=== PATIENT | female | born 1985 | race Caucasian/White ===

== ENCOUNTER 2018-04-18 03:21 | Emergency (ER) | payer BC ==
[2018-04-18] MEDS ORDERED: NA CHLORIDE 0.9% 2,000 ML ONE (03:57)
[2018-04-18 04:21] LABS: Absolute Lymphocytes (CBC) 1.2 K/uL (0.7-4.9); Absolute Monocytes 0.7 K/uL (0.1-1.3); Absolute Neutrophil 6.5 K/uL (1.8-8.0); Basophils % 0.6 % (0-1.3); Eosinophils % 2.6 % (0-4.4); Hematocrit 36.5 % (36.0-45.0); Lymphocytes % 13.6 % (15.3-44.8); MCH 31.2 pg (27.0-35.0); MCV 92.5 fL (80-100); MPV 9.7 fL (7.6-11.3); Monocytes % 8.3 % (3.3-12.3); RBC Red Blood Cell Count 3.95 M/uL (3.86-4.86)
[2018-04-18 04:32] LABS: Bicarbonate 27 mEq/L (21-31); Glucose Level 92 mg/dL (65-120); Potassium 3.5 mEq/L (3.6-5.0); Sodium Level 138 mEq/L (135-145)
[2018-04-18 04:38] LABS: ALT/SGPT 12 IU/L (10-60); AST/SGOT 18 IU/L (10-42); Alkaline Phosphatase 39 IU/L (42-121); BUN Blood Urea Nitrogen 11 mg/dL (6-20); Bilirubin Direct 0.1 mg/dL (0-0.2); Bilirubin Total 0.5 mg/dL (0.3-1.2); Protein, Total 6.9 g/dL (6.0-8.3)
--- NOTE | 2018-04-18 05:26 | EDPHYS ---
Physician Documentation [facility] Name: Keyana Romero Age: 32 yrs Sex: Female : 1985 Arrival Date: 04/18/2018 Time: 03:24 Bed 7 Private MD: ED Physician Shorty Morrison HPI: 04/18 05:17 This 32 yrs old Female presents to ER via Ambulatory with complaints of pkl dehydration, shaking, dont feel good trip to [place]. 05:17 Patient said she is feeling weak and light headed. Just returned from [facility] after pkl spending a few days there. Think she may be dehydrated.. 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 - Social history:: Smoking status: Patient uses tobacco products, denies chronic smoking, but will smoke occasionally, Patient uses alcohol, only on a social basis. Patient/guardian denies using street drugs. ROS: 05:17 Eyes: Negative for injury, pain, redness, and discharge, ENT: Negative for injury, pkl pain, and discharge, Neck: Negative for injury, pain, and swelling, Cardiovascular: Negative for chest pain, palpitations, and edema, Respiratory: Negative for shortness of breath, cough, wheezing, and pleuritic chest pain, Abdomen/GI: Negative for abdominal pain, nausea, vomiting, diarrhea, and constipation, Back: Negative for injury and pain, : Negative for injury, bleeding, discharge, and swelling, MS/Extremity: Negative for injury and deformity, Skin: Negative for injury, rash, and discoloration, Neuro: Negative for headache, weakness, numbness, tingling, and seizure. Exam: 05:17 Head/Face: Normocephalic, atraumatic. Eyes: Pupils equal round and reactive to light, pkl extra-ocular motions intact. Lids and lashes normal. Conjunctiva and sclera are non-icteric and not injected. Cornea within normal limits. Periorbital areas with no swelling, redness, or edema. ENT: Nares patent. No nasal discharge, no septal abnormalities noted. Tympanic membranes are normal and external auditory canals are clear. Oropharynx with no redness, swelling, or masses, exudates, or evidence of obstruction, uvula midline. Mucous membranes moist. Neck: Trachea midline, no thyromegaly or masses palpated, and no cervical lymphadenopathy. Supple, full range of motion without nuchal rigidity, or vertebral point tenderness. No Meningismus. Chest/axilla: Normal chest wall appearance and motion. Nontender with no deformity. No lesions are appreciated. Cardiovascular: Regular rate and rhythm with a normal S1 and S2. No gallops, murmurs, or rubs. Normal PMI, no JVD. No pulse deficits. Respiratory: Lungs have equal breath sounds bilaterally, clear to auscultation and percussion. No rales, rhonchi or wheezes noted. No increased work of breathing, no retractions or nasal flaring. Abdomen/GI: Soft, non-tender, with normal bowel sounds. No distension or tympany. No guarding or rebound. No evidence of tenderness throughout. Back: No spinal tenderness. No costovertebral tenderness. Full range of motion. Skin: Warm, dry with normal turgor. Normal color with no rashes, no lesions, and no evidence of cellulitis. MS/ Extremity: Pulses equal, no cyanosis. Neurovascular intact. Full, normal range of motion. Neuro: Awake and alert, GCS 15, oriented to person, place, time, and situation. Cranial nerves II-XII grossly intact. Motor strength 5/5 in all extremities. Sensory grossly intact. Cerebellar exam normal. Normal gait. Vital Signs: 03:30 BP 104 / 71; Pulse 71; Resp 18; Temp 98.4(TE); Pulse Ox 100% on R/A; Weight 47.63 kg fc (R); Height 5 ft. 1 in. (154.94 cm) (R); Pain 4/10; 04:30 BP 103 / 57 LA Supine (auto/reg); Pulse 76 RA; Resp 16 S; Pulse Ox 96% on R/A; bs1 05:30 BP 102 / 50 LA Sitting (auto/reg); Pulse 68 LA; Resp 16 S; Temp 98(O); Pulse Ox 100% on bs1 R/A; 03:30 Body Mass Index 19.84 (47.63 kg, 154.94 cm) MDM: 03:44 Patient medically screened. pkl 05:22 Data reviewed: vital signs, nurses notes, lab test result(s). pkl 04/18 03:50 Order name: CBC with Diff; Complete Time: 05:13 pkl 04/18 03:50 Order name: Chem 7; Complete Time: 05:13 pkl 04/18 03:50 Order name: LFT's; Complete Time: 05:13 pkl Administered Medications: 04:01 Drug: NS 0.9% 1000 ml Route: IV; Rate: 1000 ml; Site: right antecubital; bs1 05:54 Follow up: IV Status: Completed infusion bs1 04:43 Drug: NS 0.9% 1000 ml Route: IV; Rate: 125 ml/hr; Site: right antecubital; bs1 05:52 Follow up: IV Intake: 500ml bs1 05:41 Drug: K-Dur 20 mEq Route: PO; bs1 05:52 Follow up: Response: No adverse reaction bs1 Disposition: 04/18/18 05:25 Discharged to Home. Impression: Dehydration. - Condition is Stable. - Work release form, Medication Reconciliation Form, Thank You Letter, Antibiotic Education, Prescription Opioid Use form. - Follow up: Private Physician; When: 1 - 2 days; Reason: Re-evaluation by your physician. Signatures: Dispatcher [employer] Shorty Callaway MD MD pkl Chretien, Felicia, RN RN Jennifer Ruiz RN RN bs1 Corrections: (The following items were deleted from the chart) 05:54 05:25 04/18/2018 05:25 Discharged to Home. Impression: Dehydration. Condition is bs1 Stable. Forms are Medication Reconciliation Form, Thank You Letter, Antibiotic Education, Prescription Opioid Use. Follow up: Private Physician; When: 1 - 2 days; Reason: Re-evaluation by your physician. pkl
--- NOTE | 2018-04-18 05:26 | ER ---
Nurse's Notes [facility] Name: Keyana Romero Age: 32 yrs Sex: Female : 1985 Arrival Date: 04/18/2018 Time: 03:24 Bed 7 Private MD: Diagnosis: Dehydration Presentation: 04/18 03:30 Presenting complaint: Patient states: that she has been in [place] for the past few fc days. Prior to leaving yesterday she had a lot of ETOH. Then just a few hrs ago started to shake and thinks she is dehydrated. Also has a bad sunburn that is causing her to swell. Transition of care: patient was not received from another setting of care. Onset of symptoms was April 18, 2018. Initial Sepsis Screen: Does the patient meet any 2 criteria? No. Patient's initial sepsis screen is negative. Does the patient have a suspected source of infection? No. Patient's initial sepsis screen is negative. Care prior to arrival: None. 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 - Social history:: Smoking status: Patient uses tobacco products, denies chronic smoking, but will smoke occasionally, Patient uses alcohol, only on a social basis. Patient/guardian denies using street drugs. Screenin:30 Abuse screen: Denies threats or abuse. Nutritional screening: No deficits noted. Tuberculosis screening: No symptoms or risk factors identified. Fall Risk None identified. Assessment: 03:47 General: Appears in no apparent distress. uncomfortable, Behavior is calm, cooperative, bs1 appropriate for age. Pain: Denies pain. Neuro: Level of Consciousness is awake, alert, obeys commands, Oriented to person, place, time, situation, Appropriate for age Reports dizziness. Cardiovascular: Reports fatigue, Denies chest pain, shortness of breath, Heart tones S1 S2 present Capillary refill < 3 seconds Patient's skin is warm and dry. Respiratory: Airway is patent Trachea midline Respiratory effort is even, unlabored, Respiratory pattern is regular, symmetrical, Breath sounds are clear bilaterally. GI: No deficits noted. No signs and/or symptoms were reported involving the gastrointestinal system. : No deficits noted. No signs and/or symptoms were reported regarding the genitourinary system. EENT: No deficits noted. No signs and/or symptoms were reported regarding the EENT system. Derm: Skin is intact, Skin is pink, warm \T\ dry. whelp noted to right buttock/thigh area. Patient sunburnt. Musculoskeletal: Circulation, motion, and sensation intact. Capillary refill < 3 seconds, Range of motion: intact in all extremities. 04:45 Reassessment: Patient appears in no apparent distress at this time. Patient and/or bs1 family updated on plan of care and expected duration. Pain level reassessed. Patient is alert, oriented x 3, equal unlabored respirations, skin warm/dry/pink. 05:25 Reassessment: Dr Morrison gave verbal order for 500cl bolus then patient may be discharged. bs1 05:50 Reassessment: Patient appears in no apparent distress at this time. Patient and/or bs1 family updated on plan of care and expected duration. Pain level reassessed. Patient is alert, oriented x 3, equal unlabored respirations, skin warm/dry/pink. Patient states feeling better. Patient states symptoms have improved. Vital Signs: 03:30 BP 104 / 71; Pulse 71; Resp 18; Temp 98.4(TE); Pulse Ox 100% on R/A; Weight 47.63 kg fc (R); Height 5 ft. 1 in. (154.94 cm) (R); Pain 4/10; 04:30 BP 103 / 57 LA Supine (auto/reg); Pulse 76 RA; Resp 16 S; Pulse Ox 96% on R/A; bs1 05:30 BP 102 / 50 LA Sitting (auto/reg); Pulse 68 LA; Resp 16 S; Temp 98(O); Pulse Ox 100% on bs1 R/A; 03:30 Body Mass Index 19.84 (47.63 kg, 154.94 cm) ED Course: 03:24 Patient arrived in ED. es 03:30 Arm band placed on Patient placed in an exam room, on a stretcher. fc 03:30 Patient has correct armband on for positive identification. Placed in gown. Bed in low fc position. Call light in reach. Pulse ox on. NIBP on. 03:37 Jennifer Ruiz, RN is Primary Nurse. bs1 03:41 Triage completed. fc 03:42 No provider procedures requiring assistance completed. fc 03:44 Shorty Morrison MD is Attending Physician. pkl 04:00 Inserted saline lock: 20 gauge in right antecubital area, using aseptic technique. bs1 Blood collected. 05:53 IV discontinued, bleeding controlled, No redness/swelling at site. Pressure dressing bs1 applied. Administered Medications: 04:01 Drug: NS 0.9% 1000 ml Route: IV; Rate: 1000 ml; Site: right antecubital; bs1 05:54 Follow up: IV Status: Completed infusion bs1 04:43 Drug: NS 0.9% 1000 ml Route: IV; Rate: 125 ml/hr; Site: right antecubital; bs1 05:52 Follow up: IV Intake: 500ml bs1 05:41 Drug: K-Dur 20 mEq Route: PO; bs1 05:52 Follow up: Response: No adverse reaction bs1 Intake: 05:52 IV: 500ml; Total: 500ml. bs1 Outcome: 05:25 Discharge ordered by . pkl 05:53 Discharged to home ambulatory. bs1 05:53 Condition: stable 05:53 Discharge instructions given to patient, Instructed on discharge instructions, follow up and referral plans. Demonstrated understanding of instructions, follow-up care. 05:54 Patient left the ED. bs1 Signatures: Shorty Morrison MD MD pkEmily Ogden Felicia RN RN Jennifer Ruiz, RN RN bs1 Corrections: (The following items were deleted from the chart) 04:13 04:00 Inserted saline lock: 20 gauge in right antecubital area, using aseptic bs1 technique. bs1
[2018-04-18] MEDS ORDERED: POTASSIUM CL SA 10 MEQ TAB PO ONE (05:39)
== END 2018-04-18 05:54 | disposition home or self-care (01) ==
LOC: ER 03:21
DX: E86.0 Dehydration (principal); Z72.0 Tobacco use
CPT/HCPCS: 36415; 80048; 80076; 85025; 96360; 96361; 99284; J7030

== ENCOUNTER 2019-12-03 17:57 | Emergency (ER) | payer OTHER ==
[2019-12-03] MEDS ORDERED: NA CHLORIDE 0.9% 1,000 ML ONE (19:07)
[2019-12-03] MEDS ORDERED: FAMOTIDINE 20 MG/2 ML VIAL IV ONE (19:07)
[2019-12-03] MEDS ORDERED: ONDANSETRON 4 MG/2 ML VIAL ONE (19:07)
[2019-12-03 19:14] LABS: Absolute Lymphocytes (CBC) 0.8 K/uL (0.7-4.9); Basophils % 0.4 % (0-1.3); Hematocrit 37.5 % (36.0-45.0); Lymphocytes % 12.6 % (15.3-44.8); MPV 9.5 fL (7.6-11.3); RBC Red Blood Cell Count 4.19 M/uL (3.86-4.86)
[2019-12-03 19:15] LABS: Protime INR 0.98
[2019-12-03 19:29] LABS: Urine Blood NEGATIVE (NEG); Urine Glucose NEGATIVE (NEG); Urine Protein NEGATIVE (NEG)
[2019-12-03 19:34] LABS: ALT/SGPT 32 U/L (12-78); AST/SGOT 19 U/L (15-37); Albumin 4.1 g/dL (3.4-5.0); Alkaline Phosphatase 45 U/L (45-117); BUN Blood Urea Nitrogen 9 mg/dL (7-18); Bicarbonate 27 mmol/L (21-32); Bilirubin Direct 0.2 mg/dL (0-0.2); Bilirubin Total 0.6 mg/dL (0.2-1.0); Glucose Level 96 mg/dL (74-106); Magnesium 2.1 mg/dL (1.8-2.4); NT PRO-BNP 73 pg/mL (<125); Potassium 3.7 mmol/L (3.5-5.1); Protein, Total 7.2 g/dL (6.4-8.2); Sodium Level 140 mmol/L (136-145); Troponin (Emerg Dept Use Only) < 0.02 ng/mL (0.0-0.045)
--- NOTE | 2019-12-03 19:47 | RAD REPORT ---
EXAM DESCRIPTION: RAD - Chest Single View - 12/03/2019 7:27 pm CLINICAL HISTORY: SOB Chest pain. COMPARISON: No comparisons FINDINGS: Portable technique limits examination quality. The lungs are grossly clear. The heart is normal in size. No displaced fractures.Mild dextroscoliosis of the upper thoracic spine. IMPRESSION: No acute intrathoracic process suspected.
--- NOTE | 2019-12-03 20:44 | ER ---
Nurse's Notes [facility] Name: Keyana Abraham Age: 34 yrs Sex: Female : 1985 Arrival Date: 12/03/2019 Time: 18:01 Bed 24 Private MD: Diagnosis: Nausea and vomiting;Shortness of breath;Other chest pain Presentation: 12/03 18:32 Presenting complaint: Patient states: "I feel really cold, dehydrated and has episodes ca1 of vomiting twice in a week. I also start to feel chest discomfort and shortness of breath". Denies cough, congestion and fever. Transition of care: patient was not received from another setting of care. Onset of symptoms was December 03, 2019. Risk Assessment: Do you want to hurt yourself or someone else? Patient reports no desire to harm self or others. Initial Sepsis Screen: Does the patient meet any 2 criteria? No. Patient's initial sepsis screen is negative. Does the patient have a suspected source of infection? No. Patient's initial sepsis screen is negative. Care prior to arrival: None. 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 - Social history:: Smoking status: Patient uses tobacco products, denies chronic smoking, but will smoke occasionally. - Ebola Screening: : Patient negative for fever greater than or equal to 101.5 degrees Fahrenheit, and additional compatible Ebola Virus Disease symptoms Patient denies exposure to infectious person Patient denies travel to an Ebola-affected area in the 21 days before illness onset No symptoms or risks identified at this time. Screenin:05 Abuse screen: Denies threats or abuse. Denies injuries from another. Nutritional mg2 screening: No deficits noted. Tuberculosis screening: No symptoms or risk factors identified. Fall Risk IV access (20 points). Assessment: 19:06 General: Appears in no apparent distress. comfortable, Behavior is calm, cooperative. mg2 Pain: Complains of pain in chest Pain does not radiate. Pain currently is 3 out of 10 on a pain scale. Quality of pain is described as aching, Pain began gradually, 1 day ago. Neuro: Level of Consciousness is awake, alert, obeys commands, Oriented to person, place, time, situation. Cardiovascular: Capillary refill < 3 seconds Patient's skin is warm and dry. Cardiovascular: Reports chest pain. Respiratory: Airway is patent Respiratory effort is even, unlabored, Respiratory pattern is regular, symmetrical. GI: Abdomen is flat, non-distended, Reports vomiting. : No signs and/or symptoms were reported regarding the genitourinary system. EENT: No signs and/or symptoms were reported regarding the EENT system. Derm: Skin is intact, is healthy with good turgor, Skin is pink, warm \\T\\ dry. normal. Musculoskeletal: Circulation, motion, and sensation intact. Capillary refill < 3 seconds. 20:12 Reassessment: Patient appears in no apparent distress at this time. Patient and/or mg2 family updated on plan of care and expected duration. Pain level reassessed. Patient is alert, oriented x 3, equal unlabored respirations, skin warm/dry/pink. 21:00 Reassessment: Patient appears in no apparent distress at this time. Patient is alert, ca1 oriented x 3, equal unlabored respirations, skin warm/dry/pink. Vital Signs: 18:34 BP 109 / 57; Pulse 84; Resp 17 S; Temp 99.6(O); Pulse Ox 100% on R/A; Weight 45.36 kg ca1 (R); Height 5 ft. 1 in. (154.94 cm) (R); Pain 0/10; 20:12 BP 102 / 65; Pulse 82; Resp 18; Pulse Ox 100% on R/A; mg2 21:00 BP 103 / 60; Pulse 86; Resp 17 S; Pulse Ox 100% on R/A; ca1 18:34 Body Mass Index 18.89 (45.36 kg, 154.94 cm) ca1 ED Course: 18:01 Patient arrived in ED. rg4 18:25 Huber Burden PA is PHCP. cp 18:25 Huber Castro MD is Attending Physician. cp 18:34 Triage completed. ca1 18:34 Arm band placed on right wrist. EKG completed in triage. Results shown to MD. ca1 18:46 Jani Smith, RN is Primary Nurse. mg2 19:06 Patient has correct armband on for positive identification. mg2 19:06 No provider procedures requiring assistance completed. Inserted saline lock: 20 gauge mg2 in right antecubital area, using aseptic technique. Blood collected. 19:27 XRAY Chest (1 view) In Process Unspecified. EDMS 21:01 IV discontinued, intact, bleeding controlled, No redness/swelling at site. Pressure ca1 dressing applied. Administered Medications: 19:18 Drug: NS 0.9% 1000 ml Route: IV; Rate: 1 bolus; Site: right antecubital; mg2 20:15 Follow up: Response: No adverse reaction; IV Status: Completed infusion; IV Intake: mg2 1000ml 19:18 Drug: Zofran 4 mg Route: IVP; Site: right antecubital; mg2 20:14 Follow up: Response: No adverse reaction; Marked relief of symptoms mg2 19:18 Drug: Pepcid 20 mg Route: IVP; Site: right antecubital; mg2 20:14 Follow up: Response: No adverse reaction; Marked relief of symptoms mg2 Intake: 20:15 IV: 1000ml; Total: 1000ml. mg2 Outcome: 20:42 Discharge ordered by MD. cp 21:01 Discharged to home ambulatory, with significant other. ca1 21:01 Condition: stable 21:01 Discharge instructions given to patient, Instructed on discharge instructions, follow up and referral plans. medication usage, Demonstrated understanding of instructions, follow-up care, medications, Prescriptions given X 2. 21:02 Patient left the ED. ca1 Signatures: Dispatcher [employer] EDNV Huber Burden PA PA cp Garcia, Rubi rg4 Jani Smith, JERSON RN mg2 Mervat Bermudez RN RN ca1
--- NOTE | 2019-12-03 20:45 | EDPHYS ---
Physician Documentation [facility] Name: Keyana Abraham Age: 34 yrs Sex: Female : 1985 Arrival Date: 12/03/2019 Time: 18:01 Bed 24 Private MD: ASHLEY Physician Huber Castro HPI: 12/03 18:55 This 34 yrs old Female presents to ER via Ambulatory with complaints of Body cp Aches, Vomiting. 18:55 The patient has shortness of breath at rest. Onset: The symptoms/episode began/occurred cp 1 week(s) ago. Duration: The symptoms are intermittent, with no pattern. The patient's shortness of breath is aggravated by nothing, is alleviated by nothing. Associated signs and symptoms: Pertinent positives: vomiting, chest heaviness, tingling in hands, Pertinent negatives: non-productive cough, productive cough, diaphoresis, fever, visual changes. 18:55 Patient reports symptoms started this past week and admits to drinking more alcohol cp than usual the night before and last night. Symptoms started this morning but patient does not feel like she is hung over. Denies any use of prescribed or illegal drugs. [employer]: 21:01 unknown ca1 Historical: - Allergies: 18:34 No Known Allergies; ca1 - Home Meds: 18:34 None [Active]; ca1 - PMHx: 18:34 None; ca1 - PSHx: 18:34 None; ca1 - Immunization history:: Adult Immunizations up to date, Flu vaccine is not up to date. - Social history:: Smoking status: Patient uses tobacco products, denies chronic smoking, but will smoke occasionally. - Ebola Screening: : Patient negative for fever greater than or equal to 101.5 degrees Fahrenheit, and additional compatible Ebola Virus Disease symptoms Patient denies exposure to infectious person Patient denies travel to an Ebola-affected area in the 21 days before illness onset No symptoms or risks identified at this time. ROS: 19:00 Eyes: Negative for injury, pain, redness, and discharge. cp 19:00 Constitutional: Positive for body aches, chills, Negative for fever, poor PO intake. cp 19:00 ENT: Negative for drainage from ear(s), ear pain, sore throat, difficulty swallowing, cp difficulty handling secretions. 19:00 Cardiovascular: Positive for chest heaviness, Negative for edema, palpitations. 19:00 Respiratory: Positive for shortness of breath, at rest. Negative for cough, wheezing. 19:00 Abdomen/GI: Positive for nausea and vomiting, Negative for abdominal pain, diarrhea, constipation, anorexia, active vomiting. 19:00 Back: Negative for pain at rest, pain with movement, radiated pain. 19:00 : Negative for urinary symptoms. 19:00 Skin: Negative for rash. 19:00 Neuro: Positive for tingling, Negative for altered mental status, headache, weakness. 19:00 All other systems are negative. Exam: 18:55 ECG was reviewed by the Attending Physician. cp 19:07 Constitutional: The patient appears in no acute distress, alert, awake, cp non-diaphoretic, non-toxic, well developed, well nourished. 19:07 Head/Face: Normocephalic, atraumatic. cp 19:07 Eyes: Periorbital structures: appear normal, Pupils: equal, round, and reactive to light and accomodation, Extraocular movements: intact throughout, Conjunctiva: normal, no exudate, no injection, Sclera: no appreciated abnormality, Lids and lashes: appear normal, bilaterally. 19:07 ENT: External ear(s): are unremarkable, Ear canal(s): are normal, clear, TM's: dullness, bilaterally, Nose: is normal, Mouth: Lips: moist, Oral mucosa: pink and intact, moist, Posterior pharynx: is normal, airway is patent, no erythema, no exudate. 19:07 Neck: ROM/movement: is normal, is supple, without pain, no range of motions limitations. 19:07 Chest/axilla: Inspection: normal, Palpation: is normal, no crepitus, no tenderness. 19:07 Cardiovascular: Rate: normal, Rhythm: regular, Heart sounds: murmur, not appreciated, rub, not appreciated, Edema: is not appreciated. 19:07 Respiratory: the patient does not display signs of respiratory distress, Respirations: normal, no use of accessory muscles, no retractions, no splinting, no tachypnea, labored breathing, is not present, Breath sounds: are clear throughout, no decreased breath sounds, no stridor, no wheezing. 19:07 Abdomen/GI: Inspection: abdomen appears normal, Bowel sounds: active, all quadrants, Palpation: abdomen is soft and non-tender, in all quadrants, rebound tenderness, is not appreciated, voluntary guarding, is not appreciated, involuntary guarding, is not appreciated. 19:07 Back: pain, is absent, ROM is normal. 19:07 Skin: no rash present. 19:07 Neuro: Orientation: to person, place \T\ time. Mentation: is normal, Cerebellar function: is grossly normal, Motor: moves all fours, strength is normal, Sensation: no obvious gross deficits. Vital Signs: 18:34 BP 109 / 57; Pulse 84; Resp 17 S; Temp 99.6(O); Pulse Ox 100% on R/A; Weight 45.36 kg ca1 (R); Height 5 ft. 1 in. (154.94 cm) (R); Pain 0/10; 20:12 BP 102 / 65; Pulse 82; Resp 18; Pulse Ox 100% on R/A; mg2 21:00 BP 103 / 60; Pulse 86; Resp 17 S; Pulse Ox 100% on R/A; ca1 18:34 Body Mass Index 18.89 (45.36 kg, 154.94 cm) ca1 MDM: 18:26 Patient medically screened. esther 19:00 Differential diagnosis: Anemia Anxiety Reaction pulmonary edema, Pulmonary Embolism cp reactive airway disease, electrolyte abnormality, dehydration, cardiac arrythmia. 20:41 Data reviewed: vital signs, nurses notes, lab test result(s), EKG, radiologic studies, cp plain films. 20:41 Test interpretation: by ED physician or midlevel provider: ECG, plain radiologic cp studies, chest xray negative for infiltrates. Counseling: I had a detailed discussion with the patient and/or guardian regarding: the historical points, exam findings, and any diagnostic results supporting the discharge/admit diagnosis, lab results, radiology results, to return to the emergency department if symptoms worsen or persist or if there are any questions or concerns that arise at home. Response to treatment: the patient's symptoms have markedly improved after treatment, and as a result, I will discharge patient. ED course: Patient reports symptoms improved. 12/03 18:51 Order name: Influenza Screen (a \T\ B); Complete Time: 20:01 cp 12/03 20:02 Interpretation: Reviewed. 12/03 18:51 Order name: Basic Metabolic Panel; Complete Time: 20:01 12/03 20:40 Interpretation: Normal except: CL 108; CA 8.1. cp 12/03 18:51 Order name: CBC with Diff; Complete Time: 20:01 cp 12/03 20:02 Interpretation: Normal except: MCV 89.6; OBDULIO% 78.8; LYM% 12.6. cp / 18:51 Order name: LFT's; Complete Time: 20:01 cp 12/03 18:51 Order name: Magnesium; Complete Time: 20:01 cp 12/03 18:51 Order name: NT PRO-BNP; Complete Time: 20:01 cp 12/03 18:51 Order name: PT-INR; Complete Time: 20:01 cp 12/03 18:51 Order name: Troponin (emerg Dept Use Only); Complete Time: 20:01 cp 12/03 18:51 Order name: XRAY Chest (1 view); Complete Time: 20:01 cp 12/03 20:02 Interpretation: Report review. cp 12/03 19:25 Order name: Urine Dipstick--Ancillary (enter results); Complete Time: 20:01 ms 12/03 19:25 Order name: Urine --Ancillary (enter results); Complete Time: 20:01 ms 01 18:51 Order name: Urine Dipstick-Ancillary (obtain specimen); Complete Time: 19:19 cp 12/03 18:51 Order name: Urine Test (obtain specimen); Complete Time: 19:19 cp 12/03 18:51 Order name: EKG; Complete Time: 18:52 cp 12/03 18:51 Order name: EKG - Nurse/Tech; Complete Time: 19:05 cp 12/03 18:51 Order name: Cardiac monitoring; Complete Time: 19:04 cp 12/03 18:51 Order name: IV Saline Lock; Complete Time: 19:05 cp 12/03 18:51 Order name: Labs collected and sent; Complete Time: 19:05 cp 12/03 18:51 Order name: O2 Per Protocol; Complete Time: 19:05 cp 12/03 18:51 Order name: O2 Sat Monitoring; Complete Time: 19:05 cp EC:55 Rate is 66 beats/min. Rhythm is regular. MO interval is normal. QRS interval is normal. cp QT interval is normal. T waves are Inverted in lead aVL. Interpreted by me. Reviewed by me. Administered Medications: 19:18 Drug: NS 0.9% 1000 ml Route: IV; Rate: 1 bolus; Site: right antecubital; mg2 20:15 Follow up: Response: No adverse reaction; IV Status: Completed infusion; IV Intake: mg2 1000ml 19:18 Drug: Zofran 4 mg Route: IVP; Site: right antecubital; mg2 20:14 Follow up: Response: No adverse reaction; Marked relief of symptoms mg2 19:18 Drug: Pepcid 20 mg Route: IVP; Site: right antecubital; mg2 20:14 Follow up: Response: No adverse reaction; Marked relief of symptoms mg2 Disposition: 12/04 09:37 Co-signature as Attending Physician, Huber Castro MD I agree with the assessment and [facility] plan of care. Disposition: 12/03/19 20:42 Discharged to Home. Impression: Nausea and vomiting, Shortness of breath, Other chest pain. - Condition is Stable. - Discharge Instructions: Nonspecific Chest Pain, Dehydration, Adult, Nausea and Vomiting, Adult, Shortness of Breath. - Prescriptions for Pepcid 20 mg Oral Tablet - take 1 tablet by ORAL route every 12 hours for 10 days; 20 tablet. Zofran 4 mg Oral Tablet - take 1 tablet by ORAL route every 12 hours As needed; 20 tablet. - Medication Reconciliation Form, Thank You Letter, Antibiotic Education, Prescription Opioid Use form. - Follow up: Private Physician; When: 2 - 3 days; Reason: Recheck today's complaints. - Problem is new. - Symptoms have improved. Signatures: Dispatcher [employer] EDCA Huber Castro MD MD cha Page, Corey, PA PA cp Jani Smith RN RN mg2 Mervat Bermudez RN RN ca1 Corrections: (The following items were deleted from the chart) 12/03 20:41 20:02 Normal except: CL 108. cp cp 20:42 20:42 12/03/2019 20:42 Discharged to Home. Impression: Nausea and vomiting; Shortness cp of breath. Condition is Stable. Forms are Medication Reconciliation Form, Thank You Letter, Antibiotic Education, Prescription Opioid Use. Follow up: Private Physician; When: 2 - 3 days; Reason: Recheck today's complaints. Problem is new. Symptoms have improved. cp 20:57 18:51 Orthostatics ordered. cp ca1 21:02 20:42 12/03/2019 20:42 Discharged to Home. Impression: Nausea and vomiting; Shortness ca1 of breath; Other chest pain. Condition is Stable. Discharge Instructions: Nonspecific Chest Pain, Dehydration, Adult, Nausea and Vomiting, Adult, Shortness of Breath. Prescriptions for Pepcid 20 mg Oral Tablet - take 1 tablet by ORAL route every 12 hours for 10 days; 20 tablet, Zofran 4 mg Oral Tablet - take 1 tablet by ORAL route every 12 hours As needed; 20 tablet. and Forms are Medication Reconciliation Form, Thank You Letter, Antibiotic Education, Prescription Opioid Use. Follow up: Private Physician; When: 2 - 3 days; Reason: Recheck today's complaints. Problem is new. Symptoms have improved. cp 12/04 18:39 12/03 19:00 Constitutional: Positive for chills, Negative for body aches, fever, poor cp PO intake, cp
[2019-12-03 21:16] VITALS: TEMP 99.6; O2SAT 100
[2019-12-03 21:18] VITALS: BP 103/60
--- NOTE | 2019-12-04 05:30 | EKG ---
Test Date: 2019-12-03 Test Time: 18:51:42 Engineering Analyst: KASSIDYT MEASUREMENT RESULTS: Intervals: Rate: 66 MA: 146 QRSD: 70 QT: 396 QTc: 415 [place]: P: 69 MA: 146 QRS: 83 T: 73 INTERPRETIVE STATEMENTS: Normal sinus rhythm Normal ECG No previous ECG available for comparison Electronically Signed On 12-04-19 05:30:12 INFORMATICA ARCHITECT by George Espino
== END 2019-12-03 21:02 | disposition home or self-care (01) ==
LOC: ER 17:57
DX: R06.02 Shortness of breath (principal); R07.89 Other chest pain; Z72.0 Tobacco use
CPT/HCPCS: 96361; 93005; 85025; 80048; 36415; 83735; 81025; 85610; 80076; 81003; 84484; 83880; 87804 ×2; 71045; 96375; 96374; 99284; J7030; J2405